=== PATIENT | male | born 1965 | race Caucasian/White ===

== ENCOUNTER 2023-09-14 05:28 | Inpatient (IN) | payer BC ==
[~2023-09-14] VITALS: Ht 167.6 cm; Wt 72.0 kg
[~2023-09-14 05:28] MED LIST: AMLO1CAP PO; ASPI-1450 PO; ATOR40TA71 PO; BICT1TAB PO; COLC-3 PO; METF-1211 PO; METO25 PO
[2023-09-14] MEDS: SODIUM CHLORIDE 0.9% 1,000 ML IV ONE ×2 (05:55→06:16)
[2023-09-14] MEDS: DILTIAZEM HCL 5 MG/ML 5 ML VIAL IVP ONE (06:12)
[2023-09-14] MEDS: DILTIAZEM HCL 125 MG in DEXTROSE 5%-WATER 100 ML IV PRN (06:13)
[2023-09-14 06:23] LABS: BASOPHILS % (AUTO) 0.3 % (0.0-2.0); EOSINOPHILS % (AUTO) 0.3 % (1.0-6.0); HEMATOCRIT 37.8 % (41-53); HEMOGLOBIN 12.8 g/dL (13.5-17.5); LYMPHOCYTES # (AUTO) 1.8 K/uL (1.0-4.8); MEAN CORPUSCULAR HEMOGLOBIN 31.1 pg (26.0-34.0); MEAN CORPUSCULAR VOLUME 91 fL (80-100); MONOCYTES # (AUTO) 0.9 K/uL (0.1-1.0); MONOCYTES % (AUTO) 7.9 % (2.0-9.0); NEUTROPHILS % (AUTO) 76.5 % (40.0-70.0); PLATELET COUNT (AUTO) 552 K/uL (150-450); RED BLOOD CELL COUNT(AUTO) 4.13 MIL/uL (4.50-5.90); RED CELL DISTRIBUTION WIDTH 12.8 % (11.5-14.5); WHITE BLOOD COUNT (AUTO) 11.7 K/uL (4.5-11.0)
[2023-09-14 06:24] LABS: CREATININE 1.26 mg/dL (0.60-1.30); POTASSIUM 3.3 mmol/L (3.5-5.1)
[2023-09-14 06:29] LABS: ALCOHOL, BLOOD (SERUM) < 3 mg/dL (0-10)
[2023-09-14 06:30] LABS: TROPONIN I-HIGH SENSITIVITY 20 ng/L (<76)
[2023-09-14 06:31] LABS: INR 1.1 (0.9-1.1); PROTHROMBIN TIME 11.6 SEC (9.4-11.6)
[2023-09-14] MEDS: VANCOMYCIN 1.25 GM/WATER(PEG) 250 ML IV ONE (06:41)
[2023-09-14 06:49] LABS: BILIRUBIN,TOTAL 0.8 mg/dL (0.1-1.0); TOTAL PROTEIN, SERUM 7.3 g/dL (6.4-8.2)
[2023-09-14 06:53] LABS: PHOSPHORUS 3.3 mg/dL (2.5-4.9)
[2023-09-14 06:55] LABS: COVID AG,FIA SOURCE NASAL SWAB
[2023-09-14 07:26] LABS: SARS-COV2 (COVID) ANTIGEN,FIA Negative (Negative)
[2023-09-14] MEDS ORDERED: POTASSIUM CHL 10 MEQ/WATER 50 ML IV PRN (09:15)
[2023-09-14] MEDS: APIXABAN 5 MG TABLET PO SCH (09:22)
[2023-09-14] MEDS: POTASSIUM CHLORIDE 20 MEQ ER TABLET PO PRN (11:14)
[2023-09-14 11:26] VITALS: BP 108/68; PULSE 87; RESP 18; TEMP 98.4
[2023-09-14 16:11] VITALS: BP 103/62; PULSE 86; RESP 18; TEMP 100.1
[2023-09-14] MEDS: ACETAMINOPHEN 325 MG TABLET PO PRN (16:12)
[2023-09-14] MEDS ORDERED: INSULIN LISPRO 100 UNITS/ML SQ PRN (17:30)
[2023-09-14] MEDS ORDERED: GLUCAGON,HUMAN RECOMBINANT 1 MG VIAL IM PRN (17:30)
[2023-09-14] MEDS ORDERED: DEXTROSE 50%-WATER 25 GM/50 ML SYRINGE IVP PRN (17:45)
[2023-09-14] MEDS: BICTEGRAV/EMTRICIT/TENOFOV ALA 50-200-25 MG TABLET PO ONE (18:32)
[2023-09-14 19:42] VITALS: BP 116/70; PULSE 88; RESP 19; TEMP 98.4
[2023-09-14] MEDS: DOCUSATE SODIUM 100 MG CAPSULE PO SCH (20:40)
[2023-09-14 20:41] LABS: GLUCOMETER DEV NAME(LOC) 5N.1D; GLUCOSE,POINT OF CARE 172 MG/DL (70-110)
[2023-09-14 20:41] LABS: GLUCOMETER DEV NAME(LOC) 5N.1D; GLUCOSE,POINT OF CARE 169 MG/DL (70-110)
[2023-09-14] MEDS: INSULIN LISPRO 100 UNITS/ML SQ PRN (20:48)
[2023-09-14 23:03] LABS: APPEARANCE,URINE CLEAR (CLEAR); BILIRUBIN,URINE NEGATIVE (NEGATIVE); COLOR,URINE LIGHT YELLOW (YELLOW); GLUCOSE, URINE (UA) NEGATIVE (NEGATIVE); KETONES,URINE NEGATIVE (NEGATIVE); LEUKOCYTE ESTERASE ,URINE NEGATIVE (NEGATIVE); NITRATE,URINE NEGATIVE (NEGATIVE); OCCULT BLOOD,URINE NEGATIVE (NEGATIVE); PH,URINE 5.5 (5.0-8.0); PROTEIN,URINE NEGATIVE (NEGATIVE); SPECIFIC GRAVITIY, URINE 1.011 (1.003-1.030)
[2023-09-14 23:11] LABS: ALCOHOL, URINE DRUG SCREEN NEGATIVE (NEGATIVE); AMPHET/METH SCREEN,URINE NEGATIVE (NEGATIVE); BARBITURATE SCREEN, URINE NEGATIVE (NEGATIVE); BENZODIAZEPINES SCREEN,URINE NEGATIVE (NEGATIVE); CANNABINOID SCREEN,URINE NEGATIVE (NEGATIVE); COCAINE SCREEN,URINE NEGATIVE (NEGATIVE); METHADONE SCREEN, URINE NEGATIVE (NEGATIVE); OPIATE SCREEN,URINE NEGATIVE (NEGATIVE); PHENCYCLIDINE SCREEN,URINE NEGATIVE (NEGATIVE)
[2023-09-14 23:24] LABS: PH,URINE DRUG SCREEN 5.5 (5.0-8.0)
[2023-09-14 23:26] VITALS: BP 117/69; PULSE 97; RESP 18; TEMP 100.7
[2023-09-15 01:56] LABS: GLUCOMETER DEV NAME(LOC) 5N.2C; GLUCOSE,POINT OF CARE 169 MG/DL (70-110)
[2023-09-15 03:33] VITALS: BP 110/60; PULSE 79; RESP 18; TEMP 99.1
[2023-09-15 06:16] LABS: TROPONIN I-HIGH SENSITIVITY 8 ng/L (<76)
[2023-09-15 06:21] LABS: GLUCOMETER DEV NAME(LOC) 5N.2C; GLUCOSE,POINT OF CARE 145 MG/DL (70-110)
[2023-09-15 08:00] VITALS: BP 115/68; PULSE 89; RESP 18; TEMP 99
[2023-09-15] MEDS: OxyCODONE HCL/ACETAMINOPHEN 5-325 MG TABLET PO PRN (08:26)
[2023-09-15] MEDS: FAMOTIDINE 20 MG TABLET PO SCH (08:26)
[2023-09-15 11:56] VITALS: BP 117/79; PULSE 84; RESP 18; TEMP 98.7
[2023-09-15] MEDS: METOPROLOL SUCCINATE 25 MG ER TABLET PO SCH (11:59)
[2023-09-15 12:16] LABS: GLUCOMETER DEV NAME(LOC) 5N.2C; GLUCOSE,POINT OF CARE 165 MG/DL (70-110)
[2023-09-15] MEDS: COLCHICINE 0.6 MG TABLET PO SCH (15:43)
[2023-09-15 20:00] VITALS: BP 116/68; PULSE 85; RESP 19; TEMP 98.6
[2023-09-15 20:35] LABS: GLUCOMETER DEV NAME(LOC) 5N.2C; GLUCOSE,POINT OF CARE 140 MG/DL (70-110)
[2023-09-15 23:50] VITALS: BP 125/78; PULSE 87; RESP 18; TEMP 99.9
[2023-09-16 04:00] VITALS: BP 137/80; PULSE 84; RESP 19; TEMP 98.8
[2023-09-16 06:16] LABS: BASOPHILS % (AUTO) 0.4 % (0.0-2.0); EOSINOPHILS % (AUTO) 0.8 % (1.0-6.0); HEMATOCRIT 31.5 % (41-53); HEMOGLOBIN 11.1 g/dL (13.5-17.5); LYMPHOCYTES # (AUTO) 1.2 K/uL (1.0-4.8); LYMPHOCYTES % (AUTO) 14.1 % (22.0-44.0); MEAN CORPUSCULAR HEMOGLOBIN 32.2 pg (26.0-34.0); MEAN CORPUSCULAR HGB CONC 35.2 G/dL (31.0-37.0); MEAN CORPUSCULAR VOLUME 92 fL (80-100); MONOCYTES # (AUTO) 0.7 K/uL (0.1-1.0); MONOCYTES % (AUTO) 8.7 % (2.0-9.0); NEUTROPHILS # (AUTO) 6.3 K/uL (1.8-7.7); PLATELET COUNT (AUTO) 475 K/uL (150-450); RED BLOOD CELL COUNT(AUTO) 3.44 MIL/uL (4.50-5.90); RED CELL DISTRIBUTION WIDTH 12.9 % (11.5-14.5); WHITE BLOOD COUNT (AUTO) 8.3 K/uL (4.5-11.0)
[2023-09-16 06:31] LABS: GLUCOMETER DEV NAME(LOC) 5N.1D; GLUCOSE,POINT OF CARE 163 MG/DL (70-110)
[2023-09-16 06:31] LABS: GLUCOMETER DEV NAME(LOC) 5N.1D; GLUCOSE,POINT OF CARE 220 MG/DL (70-110)
[2023-09-16 08:24] VITALS: BP 123/75; PULSE 82; RESP 19; TEMP 98.6
[2023-09-16 11:49] VITALS: BP 118/72; PULSE 80; RESP 18; TEMP 98.4
[2023-09-16 15:47] VITALS: BP 142/78; PULSE 85; RESP 19; TEMP 98.6
[2023-09-16] MEDS: IBUPROFEN 600 MG TABLET PO SCH (15:54)
[2023-09-16 20:00] VITALS: BP 109/56; PULSE 62; RESP 18; TEMP 98.6
[2023-09-17] VITALS (8 sets, daily range): BP systolic 116–150; BP diastolic 69–93; PULSE 72–95; RESP 17–19; TEMP 98–101.1
[2023-09-17] MEDS: IBUPROFEN 600 MG TABLET PO SCH (08:07)
[2023-09-17 12:25] LABS: GLUCOMETER DEV NAME(LOC) 5N.1D; GLUCOSE,POINT OF CARE 176 MG/DL (70-110)
[2023-09-17 12:30] LABS: GLUCOMETER DEV NAME(LOC) 5S.2D; GLUCOSE,POINT OF CARE 137 MG/DL (70-110)
[2023-09-18] VITALS (7 sets, daily range): BP systolic 99–126; BP diastolic 64–76; PULSE 79–99; RESP 17–19; TEMP 98.2–100.1
[2023-09-18] MEDS: KETOROLAC TROMETHAMINE 15 MG/ML VIAL IVP ONE (03:46)
[2023-09-18 06:31] LABS: GLUCOMETER DEV NAME(LOC) 5N.2C; GLUCOSE,POINT OF CARE 164 MG/DL (70-110)
[2023-09-18 06:31] LABS: GLUCOMETER DEV NAME(LOC) 5N.2C; GLUCOSE,POINT OF CARE 204 MG/DL (70-110)
[2023-09-18 06:31] LABS: GLUCOMETER DEV NAME(LOC) 5N.2C; GLUCOSE,POINT OF CARE 171 MG/DL (70-110)
[2023-09-18] MEDS: METOPROLOL SUCCINATE 50 MG ER TABLET PO SCH (07:59)
[2023-09-18 09:13] LABS: APPEARANCE,URINE CLEAR (CLEAR); BILIRUBIN,URINE NEGATIVE (NEGATIVE); COLOR,URINE YELLOW (YELLOW); GLUCOSE, URINE (UA) NEGATIVE (NEGATIVE); KETONES,URINE TRACE mg/dL (NEGATIVE); LEUKOCYTE ESTERASE ,URINE NEGATIVE (NEGATIVE); NITRATE,URINE NEGATIVE (NEGATIVE); OCCULT BLOOD,URINE NEGATIVE (NEGATIVE); PH,URINE 6.5 (5.0-8.0); PROTEIN,URINE 30-70 mg/dL (NEGATIVE); SPECIFIC GRAVITIY, URINE 1.024 (1.003-1.030); UROBILINOGEN,URINE >12.0 mg/dL (<=1.0)
[2023-09-18 10:13] LABS: ANION GAP 6 mmol/L (8-16); BASOPHILS % (AUTO) 0.5 % (0.0-2.0); CALCIUM, TOTAL 8.8 mg/dL (8.8-10.5); CARBON DIOXIDE 30 mmol/L (22-29); CHLORIDE 96 mmol/L (98-107); CREATININE 1.02 mg/dL (0.60-1.30); EOSINOPHILS % (AUTO) 0.1 % (1.0-6.0); GLOMERULAR FILTR. RATE CALC > 60 mL/min (>60); GLUCOSE,RANDOM 146 mg/dL (70-110); HEMOGLOBIN 11.5 g/dL (13.5-17.5); LYMPHOCYTES # (AUTO) 0.7 K/uL (1.0-4.8); LYMPHOCYTES % (AUTO) 6.8 % (22.0-44.0); MEAN CORPUSCULAR HEMOGLOBIN 31.3 pg (26.0-34.0); MEAN CORPUSCULAR HGB CONC 33.7 G/dL (31.0-37.0); MEAN CORPUSCULAR VOLUME 93 fL (80-100); MONOCYTES # (AUTO) 0.7 K/uL (0.1-1.0); MONOCYTES % (AUTO) 6.3 % (2.0-9.0); NEUTROPHILS # (AUTO) 9.3 K/uL (1.8-7.7); PLATELET COUNT (AUTO) 623 K/uL (150-450); POTASSIUM 4.1 mmol/L (3.5-5.1); RED BLOOD CELL COUNT(AUTO) 3.66 MIL/uL (4.50-5.90); RED CELL DISTRIBUTION WIDTH 12.9 % (11.5-14.5); SODIUM SERUM 132 mmol/L (136-145); UREA NITROGEN, BLOOD 13 mg/dL (7-18); WHITE BLOOD COUNT (AUTO) 10.7 K/uL (4.5-11.0)
[2023-09-18 10:18] LABS: NEUTROPHILS % (AUTO) 86.3 % (40.0-70.0)
[2023-09-18 10:36] LABS: COVID AG,FIA SOURCE NASAL SWAB
[2023-09-18] MEDS: PredniSONE 10 MG TABLET PO SCH (10:57)
[2023-09-18 11:07] LABS: SARS-COV2 (COVID) ANTIGEN,FIA Negative (Negative)
[2023-09-18] MEDS: FAMOTIDINE 20 MG TABLET PO SCH (20:51)
[2023-09-19] VITALS (7 sets, daily range): BP systolic 105–136; BP diastolic 57–77; PULSE 71–94; RESP 18; TEMP 97.9–99.1
[2023-09-19] MEDS: BENZONATATE 100 MG CAPSULE PO PRN (06:21)
[2023-09-19 06:25] LABS: GLUCOMETER DEV NAME(LOC) 5S.2D; GLUCOSE,POINT OF CARE 131 MG/DL (70-110)
[2023-09-19 06:25] LABS: GLUCOMETER DEV NAME(LOC) 5N.1D; GLUCOSE,POINT OF CARE 179 MG/DL (70-110)
[2023-09-19 06:25] LABS: GLUCOMETER DEV NAME(LOC) 5N.1D; GLUCOSE,POINT OF CARE 193 MG/DL (70-110)
[2023-09-19 06:25] LABS: GLUCOMETER DEV NAME(LOC) 5N.1D; GLUCOSE,POINT OF CARE 206 MG/DL (70-110)
[2023-09-19 12:23] LABS: ANION GAP 7 mmol/L (8-16); CALCIUM, TOTAL 8.3 mg/dL (8.8-10.5); CARBON DIOXIDE 28 mmol/L (22-29); CHLORIDE 98 mmol/L (98-107); CREATININE 1.04 mg/dL (0.60-1.30); GLOMERULAR FILTR. RATE CALC > 60 mL/min (>60); GLUCOSE,RANDOM 184 mg/dL (70-110); SODIUM SERUM 133 mmol/L (136-145); UREA NITROGEN, BLOOD 17 mg/dL (7-18)
[2023-09-19 12:25] LABS: BASOPHILS % (AUTO) 0.2 % (0.0-2.0); EOSINOPHILS % (AUTO) 0 % (1.0-6.0); HEMATOCRIT 31.5 % (41-53); HEMOGLOBIN 10.8 g/dL (13.5-17.5); LYMPHOCYTES # (AUTO) 0.6 K/uL (1.0-4.8); LYMPHOCYTES % (AUTO) 5.1 % (22.0-44.0); MEAN CORPUSCULAR HEMOGLOBIN 31.3 pg (26.0-34.0); MEAN CORPUSCULAR HGB CONC 34.1 G/dL (31.0-37.0); MEAN CORPUSCULAR VOLUME 92 fL (80-100); MONOCYTES # (AUTO) 0.5 K/uL (0.1-1.0); MONOCYTES % (AUTO) 4.1 % (2.0-9.0); NEUTROPHILS # (AUTO) 10.2 K/uL (1.8-7.7); PLATELET COUNT (AUTO) 594 K/uL (150-450); RED BLOOD CELL COUNT(AUTO) 3.44 MIL/uL (4.50-5.90); WHITE BLOOD COUNT (AUTO) 11.3 K/uL (4.5-11.0)
[2023-09-19 12:28] LABS: NEUTROPHILS % (AUTO) 90.6 % (40.0-70.0)
[2023-09-19] MEDS ORDERED: SODIUM CHLORIDE 0.9% 500 ML IV ONE (16:07)
[2023-09-19] MEDS: VANCOMYCIN 1.75GM/WATER(PEG) 350 ML IV ONE (16:13)
[2023-09-19] MEDS: MORPHINE SULFATE 2 MG/ML SYRINGE IVP PRN (16:13)
[2023-09-19] MEDS: ACYCLOVIR 800 MG TABLET PO SCH (17:44)
[2023-09-19] MEDS: ACYCLOVIR 5% 15 GM OINTMENT TP SCH (17:44)
[2023-09-19 20:10] LABS: GLUCOMETER DEV NAME(LOC) 5N.1D; GLUCOSE,POINT OF CARE 189 MG/DL (70-110)
[2023-09-19 20:10] LABS: GLUCOMETER DEV NAME(LOC) 5N.1D; GLUCOSE,POINT OF CARE 204 MG/DL (70-110)
[2023-09-20 03:33] VITALS: BP 127/69; PULSE 78; RESP 18; TEMP 99.1
[2023-09-20 07:07] LABS: ANION GAP 10 mmol/L (8-16); CALCIUM, TOTAL 8.3 mg/dL (8.8-10.5); CARBON DIOXIDE 27 mmol/L (22-29); CHLORIDE 100 mmol/L (98-107); CREATININE 0.85 mg/dL (0.60-1.30); GLOMERULAR FILTR. RATE CALC > 60 mL/min (>60); GLUCOSE,RANDOM 127 mg/dL (70-110); POTASSIUM 3.3 mmol/L (3.5-5.1); SODIUM SERUM 137 mmol/L (136-145); UREA NITROGEN, BLOOD 15 mg/dL (7-18)
[2023-09-20 07:34] VITALS: BP 146/81; PULSE 84; RESP 18; TEMP 98.4
[2023-09-20] MEDS ORDERED: VANCOMYCIN 1GM/WATER(PEG/NADA) 200 ML IV SCH (08:00)
[2023-09-20] MEDS: VANCOMYCIN 1.25 GM/WATER(PEG) 250 ML IV SCH (10:50)
[2023-09-20 11:43] VITALS: BP 109/56; PULSE 65; RESP 18; TEMP 98.9
[2023-09-20 12:11] LABS: GLUCOMETER DEV NAME(LOC) 5N.2C; GLUCOSE,POINT OF CARE 211 MG/DL (70-110)
[2023-09-20 12:11] LABS: GLUCOMETER DEV NAME(LOC) 5N.2C; GLUCOSE,POINT OF CARE 132 MG/DL (70-110)
[2023-09-20 16:20] VITALS: BP 134/72; PULSE 68; RESP 18; TEMP 98.3
[2023-09-20 19:33] VITALS: BP 133/78; PULSE 69; RESP 18; TEMP 97.5
[2023-09-20 21:00] LABS: GLUCOMETER DEV NAME(LOC) 5N.1D; GLUCOSE,POINT OF CARE 196 MG/DL (70-110)
[2023-09-20 21:00] LABS: GLUCOMETER DEV NAME(LOC) 5N.1D; GLUCOSE,POINT OF CARE 201 MG/DL (70-110)
[2023-09-21 00:15] VITALS: BP 138/73; PULSE 75; RESP 18; TEMP 98.6
[2023-09-21] MEDS: AMIODARONE HCL 150 MG in DEXTROSE 5%-WATER 97 ML IV ONE (03:51)
[2023-09-21] MEDS: AMIODARONE HCL 360 MG in DEXTROSE 5%-WATER 242.8 ML IV ONE (03:58)
[2023-09-21 04:34] VITALS: BP 121/68; PULSE 75; RESP 18; TEMP 98.5
[2023-09-21 06:55] LABS: ANION GAP 10 mmol/L (8-16); CALCIUM, TOTAL 8.4 mg/dL (8.8-10.5); CARBON DIOXIDE 24 mmol/L (22-29); CHLORIDE 103 mmol/L (98-107); CREATININE 0.85 mg/dL (0.60-1.30); GLOMERULAR FILTR. RATE CALC > 60 mL/min (>60); GLUCOSE,RANDOM 149 mg/dL (70-110); POTASSIUM 3.8 mmol/L (3.5-5.1); SODIUM SERUM 137 mmol/L (136-145); UREA NITROGEN, BLOOD 13 mg/dL (7-18)
[2023-09-21 07:15] LABS: VANCOMYCIN,RANDOM 17.2 mcg/mL (25.0-50.0)
[2023-09-21 07:33] VITALS: BP 119/69; PULSE 70; RESP 18; TEMP 98.6
[2023-09-21] MEDS: METOPROLOL SUCCINATE 50 MG ER TABLET PO SCH (08:24)
[2023-09-21] MEDS ORDERED: AMIODARONE HCL 540 MG in DEXTROSE 5%-WATER 239.2 ML IV ONE (09:30)
[2023-09-21 11:20] LABS: GLUCOMETER DEV NAME(LOC) 5N.1D; GLUCOSE,POINT OF CARE 153 MG/DL (70-110)
[2023-09-21 11:20] LABS: GLUCOMETER DEV NAME(LOC) 5N.1D; GLUCOSE,POINT OF CARE 200 MG/DL (70-110)
[2023-09-21 11:29] VITALS: BP 117/63; PULSE 67; RESP 18; TEMP 98.5
[2023-09-21 12:40] LABS: BASOPHILS % (AUTO) 0.5 % (0.0-2.0); EOSINOPHILS % (AUTO) 0.3 % (1.0-6.0); HEMATOCRIT 32.1 % (41-53); HEMOGLOBIN 10.5 g/dL (13.5-17.5); LYMPHOCYTES # (AUTO) 1.1 K/uL (1.0-4.8); LYMPHOCYTES % (AUTO) 13.5 % (22.0-44.0); MEAN CORPUSCULAR HEMOGLOBIN 30.7 pg (26.0-34.0); MEAN CORPUSCULAR HGB CONC 32.8 G/dL (31.0-37.0); MEAN CORPUSCULAR VOLUME 93 fL (80-100); MONOCYTES # (AUTO) 0.8 K/uL (0.1-1.0); MONOCYTES % (AUTO) 9.4 % (2.0-9.0); NEUTROPHILS # (AUTO) 6.3 K/uL (1.8-7.7); NEUTROPHILS % (AUTO) 76.3 % (40.0-70.0); PLATELET COUNT (AUTO) 655 K/uL (150-450); RED BLOOD CELL COUNT(AUTO) 3.43 MIL/uL (4.50-5.90); RED CELL DISTRIBUTION WIDTH 13.3 % (11.5-14.5); WHITE BLOOD COUNT (AUTO) 8.3 K/uL (4.5-11.0)
[2023-09-21 15:11] LABS: GLUCOMETER DEV NAME(LOC) 5N.2C; GLUCOSE,POINT OF CARE 169 MG/DL (70-110)
[2023-09-21 16:28] VITALS: BP 111/72; PULSE 82; RESP 19; TEMP 97.9
[2023-09-21] MEDS: NAFCILLIN SODIUM 2 GM in DEXTROSE 5%-WATER 100 ML IV SCH (16:49)
[2023-09-21 20:37] VITALS: BP 143/75; PULSE 64; RESP 18; TEMP 98.3
[2023-09-21] MEDS: ATORVASTATIN CALCIUM 40 MG TABLET PO SCH (20:46)
[2023-09-21 22:46] LABS: GLUCOMETER DEV NAME(LOC) 5S.2D; GLUCOSE,POINT OF CARE 242 MG/DL (70-110)
[2023-09-21 22:46] LABS: GLUCOMETER DEV NAME(LOC) 5N.2C; GLUCOSE,POINT OF CARE 260 MG/DL (70-110)
[2023-09-22] VITALS (7 sets, daily range): BP systolic 111–140; BP diastolic 46–79; PULSE 54–71; RESP 16–19; TEMP 98–98.9
[2023-09-22] MEDS ORDERED: AMIODARONE HCL 750 MG in DEXTROSE 5%-WATER 485 ML IV SCH (03:30)
[2023-09-22 05:11] LABS: GLUCOMETER DEV NAME(LOC) 5S.2D; GLUCOSE,POINT OF CARE 131 MG/DL (70-110)
[2023-09-22 06:14] LABS: ALANINE AMINOTRANSFERASE 87 U/L (12-78); ALBUMIN 1.5 g/dL (3.4-5.0); ALKALINE PHOSPHATASE 54 U/L (46-116); ANION GAP 8 mmol/L (8-16); ASPARTATE AMINOTRANSFERASE 34 U/L (15-37); BILIRUBIN,TOTAL 0.7 mg/dL (0.1-1.0); C-REACTIVE PROTEIN QUANT 5.12 mg/dL (0.00-0.30); CALCIUM, TOTAL 8.2 mg/dL (8.8-10.5); CARBON DIOXIDE 26 mmol/L (22-29); CHLORIDE 103 mmol/L (98-107); GLOMERULAR FILTR. RATE CALC > 60 mL/min (>60); GLUCOSE,RANDOM 131 mg/dL (70-110); POTASSIUM 3.4 mmol/L (3.5-5.1); SODIUM SERUM 137 mmol/L (136-145); TOTAL PROTEIN, SERUM 6.3 g/dL (6.4-8.2); UREA NITROGEN, BLOOD 15 mg/dL (7-18)
[2023-09-22] MEDS: BICTEGRAV/EMTRICIT/TENOFOV ALA 50-200-25 MG TABLET PO SCH (08:43)
[2023-09-22] MEDS: ASPIRIN 81 MG CHEWABLE TABLET PO SCH (08:44)
[2023-09-22] MEDS: ACYCLOVIR 200 MG CAPSULE PO SCH (15:58)
[2023-09-22 20:16] LABS: GLUCOMETER DEV NAME(LOC) 5S.2D; GLUCOSE,POINT OF CARE 174 MG/DL (70-110)
[2023-09-22 20:16] LABS: GLUCOMETER DEV NAME(LOC) 5N.2C; GLUCOSE,POINT OF CARE 152 MG/DL (70-110)
[2023-09-23 03:36] VITALS: BP 128/64; PULSE 66; RESP 18; TEMP 98.5
[2023-09-23 06:28] LABS: ANION GAP 7 mmol/L (8-16); CALCIUM, TOTAL 8.1 mg/dL (8.8-10.5); CARBON DIOXIDE 28 mmol/L (22-29); CHLORIDE 104 mmol/L (98-107); CREATININE 0.93 mg/dL (0.60-1.30); GLOMERULAR FILTR. RATE CALC > 60 mL/min (>60); GLUCOSE,RANDOM 133 mg/dL (70-110); POTASSIUM 3.3 mmol/L (3.5-5.1); SODIUM SERUM 139 mmol/L (136-145); UREA NITROGEN, BLOOD 11 mg/dL (7-18)
[2023-09-23 06:55] LABS: GLUCOMETER DEV NAME(LOC) 5S.2D; GLUCOSE,POINT OF CARE 139 MG/DL (70-110)
[2023-09-23 06:55] LABS: GLUCOMETER DEV NAME(LOC) 5S.2D; GLUCOSE,POINT OF CARE 142 MG/DL (70-110)
[2023-09-23 08:02] VITALS: BP 134/83; PULSE 73; RESP 18; TEMP 98.3
[2023-09-23 11:41] LABS: GLUCOMETER DEV NAME(LOC) 5N.2C; GLUCOSE,POINT OF CARE 189 MG/DL (70-110)
[2023-09-23 11:49] VITALS: BP 114/61; PULSE 58; RESP 18; TEMP 97.8
[2023-09-23] MEDS: LORazepam 2 MG/ML VIAL IVP ONE (13:44)
[2023-09-23] MEDS ORDERED: GADOTERATE MEGLUMINE 10 MMOL/20 ML VIAL IVP ONE (14:59)
[2023-09-23 15:07] VITALS: BP 122/71; PULSE 62; RESP 18; TEMP 98
[2023-09-23 20:01] LABS: GLUCOMETER DEV NAME(LOC) 5S.2D; GLUCOSE,POINT OF CARE 156 MG/DL (70-110)
[2023-09-23 21:33] VITALS: BP 119/64; PULSE 76; RESP 18; TEMP 98.2
[2023-09-24] VITALS (8 sets, daily range): BP systolic 118–149; BP diastolic 63–81; PULSE 58–90; RESP 18–20; TEMP 98.3–98.9
[2023-09-24 01:56] LABS: GLUCOMETER DEV NAME(LOC) 5S.2D; GLUCOSE,POINT OF CARE 166 MG/DL (70-110)
[2023-09-24 06:31] LABS: BASOPHILS % (AUTO) 0.3 % (0.0-2.0); EOSINOPHILS % (AUTO) 0.7 % (1.0-6.0); HEMATOCRIT 32.2 % (41-53); LYMPHOCYTES # (AUTO) 1.4 K/uL (1.0-4.8); LYMPHOCYTES % (AUTO) 21.3 % (22.0-44.0); MEAN CORPUSCULAR HEMOGLOBIN 31.2 pg (26.0-34.0); MEAN CORPUSCULAR HGB CONC 34.3 G/dL (31.0-37.0); MEAN CORPUSCULAR VOLUME 91 fL (80-100); MONOCYTES # (AUTO) 0.6 K/uL (0.1-1.0); MONOCYTES % (AUTO) 8.7 % (2.0-9.0); NEUTROPHILS # (AUTO) 4.6 K/uL (1.8-7.7); PLATELET COUNT (AUTO) 602 K/uL (150-450); RED BLOOD CELL COUNT(AUTO) 3.53 MIL/uL (4.50-5.90); WHITE BLOOD COUNT (AUTO) 6.7 K/uL (4.5-11.0)
[2023-09-24 07:00] LABS: ALANINE AMINOTRANSFERASE 51 U/L (12-78); ALBUMIN 1.6 g/dL (3.4-5.0); ALKALINE PHOSPHATASE 54 U/L (46-116); ANION GAP 6 mmol/L (8-16); ASPARTATE AMINOTRANSFERASE 24 U/L (15-37); BILIRUBIN,TOTAL 0.6 mg/dL (0.1-1.0); C-REACTIVE PROTEIN QUANT 3.35 mg/dL (0.00-0.30); CARBON DIOXIDE 29 mmol/L (22-29); CHLORIDE 102 mmol/L (98-107); GLOMERULAR FILTR. RATE CALC > 60 mL/min (>60); GLUCOSE,RANDOM 138 mg/dL (70-110); POTASSIUM 3.3 mmol/L (3.5-5.1); SODIUM SERUM 137 mmol/L (136-145); TOTAL PROTEIN, SERUM 6.3 g/dL (6.4-8.2); UREA NITROGEN, BLOOD 12 mg/dL (7-18)
[2023-09-24] MEDS ORDERED: BENZOCAINE 20% 50 MCG/SPRAY 57 GM ONE (12:12)
[2023-09-24] MEDS ORDERED: MIDAZOLAM HCL 2 MG/2 ML VIAL ONE (12:29)
[2023-09-24] MEDS ORDERED: FentaNYL CITRATE PF 100 MCG/2 ML VIAL ONE (12:29)
[2023-09-24] MEDS: MIDAZOLAM HCL 2 MG/2 ML VIAL IVP ONE (12:56)
[2023-09-24] MEDS: FentaNYL CITRATE PF 100 MCG/2 ML VIAL IVP ONE (12:57)
[2023-09-24 16:05] LABS: GLUCOMETER DEV NAME(LOC) 5N.2C; GLUCOSE,POINT OF CARE 124 MG/DL (70-110)
[2023-09-24 16:05] LABS: GLUCOMETER DEV NAME(LOC) 5N.2C; GLUCOSE,POINT OF CARE 129 MG/DL (70-110)
[2023-09-24 20:01] LABS: GLUCOMETER DEV NAME(LOC) 5S.2D; GLUCOSE,POINT OF CARE 185 MG/DL (70-110)
[2023-09-25] VITALS (7 sets, daily range): BP systolic 107–130; BP diastolic 53–78; PULSE 62–74; RESP 18–19; TEMP 98.1–98.8
[2023-09-25 05:41] LABS: GLUCOMETER DEV NAME(LOC) 5N.2C; GLUCOSE,POINT OF CARE 140 MG/DL (70-110)
[2023-09-25 08:46] LABS: ANION GAP 5 mmol/L (8-16); CALCIUM, TOTAL 8.4 mg/dL (8.8-10.5); CARBON DIOXIDE 31 mmol/L (22-29); CHLORIDE 100 mmol/L (98-107); CREATININE 0.95 mg/dL (0.60-1.30); GLOMERULAR FILTR. RATE CALC > 60 mL/min (>60); GLUCOSE,RANDOM 127 mg/dL (70-110); POTASSIUM 3.4 mmol/L (3.5-5.1); SODIUM SERUM 136 mmol/L (136-145); UREA NITROGEN, BLOOD 12 mg/dL (7-18)
[2023-09-25 20:26] LABS: GLUCOMETER DEV NAME(LOC) 5S.2D; GLUCOSE,POINT OF CARE 197 MG/DL (70-110)
[2023-09-25 20:26] LABS: GLUCOMETER DEV NAME(LOC) 5S.2D; GLUCOSE,POINT OF CARE 119 MG/DL (70-110)
[2023-09-25 20:26] LABS: GLUCOMETER DEV NAME(LOC) 5S.2D; GLUCOSE,POINT OF CARE 115 MG/DL (70-110)
[2023-09-25 21:45] LABS: GLUCOMETER DEV NAME(LOC) 5N.2C; GLUCOSE,POINT OF CARE 176 MG/DL (70-110)
[2023-09-26 04:40] VITALS: BP 123/69; PULSE 65; RESP 18; TEMP 98
[2023-09-26 07:31] LABS: GLUCOMETER DEV NAME(LOC) 5N.2C; GLUCOSE,POINT OF CARE 125 MG/DL (70-110)
[2023-09-26 08:55] VITALS: BP 124/65; PULSE 66; RESP 18; TEMP 98.8
[2023-09-26] MEDS ORDERED: SODIUM CHLORIDE 0.9% 1,000 ML ONE (12:22)
[2023-09-26 13:10] VITALS: BP 128/58; PULSE 58; RESP 18; TEMP 98.8
[2023-09-26 17:41] VITALS: BP 137/70; PULSE 61; RESP 18; TEMP 98.3
[2023-09-26 19:56] LABS: GLUCOMETER DEV NAME(LOC) 5N.2C; GLUCOSE,POINT OF CARE 178 MG/DL (70-110)
[2023-09-26 19:56] LABS: GLUCOMETER DEV NAME(LOC) 5N.2C; GLUCOSE,POINT OF CARE 142 MG/DL (70-110)
[2023-09-26 19:58] VITALS: BP 121/72; PULSE 58; RESP 19; TEMP 98.1
[2023-09-26 21:46] LABS: GLUCOMETER DEV NAME(LOC) 5S.2D; GLUCOSE,POINT OF CARE 126 MG/DL (70-110)
[2023-09-27 00:40] VITALS: BP 137/71; PULSE 70; RESP 18; TEMP 98.3
[2023-09-27 04:11] VITALS: BP 121/67; PULSE 63; RESP 19; TEMP 98.9
[2023-09-27 06:42] LABS: GLUCOMETER DEV NAME(LOC) 5S.2D; GLUCOSE,POINT OF CARE 128 MG/DL (70-110)
[2023-09-27 07:53] VITALS: BP 137/84; PULSE 62; RESP 18; TEMP 98.5
[2023-09-27 14:49] VITALS: BP 116/59; PULSE 55; RESP 18; TEMP 98.2
[2023-09-27 21:56] LABS: GLUCOMETER DEV NAME(LOC) 5S.2D; GLUCOSE,POINT OF CARE 157 MG/DL (70-110)
[2023-09-27 21:56] LABS: GLUCOMETER DEV NAME(LOC) 5S.2D; GLUCOSE,POINT OF CARE 129 MG/DL (70-110)
== END 2023-09-27 19:20 | DRG 314 ==
LOC: EMS 05:30 → EDH 09:24 → 5N 10:36
PROVIDERS: ADMIT Internal Medicine; ATTEND Internal Medicine
PROC: 05H933Z Insertion of Infusion Device into Right Brachial Vein, Percutaneous Approach (ICD-10-PCS; principal; 2023-09-25)
DX: I30.1 Infective pericarditis (principal); E43 Unspecified severe protein-calorie malnutrition; E87.1 Hypo-osmolality and hyponatremia; R78.81 Bacteremia; I48.0 Paroxysmal atrial fibrillation; I31.39 Other pericardial effusion (noninflammatory); I25.10 Atherosclerotic heart disease of native coronary artery without angina pectoris; E11.9 Type 2 diabetes mellitus without complications; I11.9 Hypertensive heart disease without heart failure; E87.6 Hypokalemia; E78.5 Hyperlipidemia, unspecified; B00.9 Herpesviral infection, unspecified; Z20.822 Contact with and (suspected) exposure to COVID-19; M54.6 Pain in thoracic spine; S30.820A Blister (nonthermal) of lower back and pelvis, initial encounter; B95.61 Methicillin susceptible Staphylococcus aureus infection as the cause of diseases classified elsewhere; D75.839 Thrombocytosis, unspecified; M48.02 Spinal stenosis, cervical region; X58.XXXA Exposure to other specified factors, initial encounter; Z79.01 Long term (current) use of anticoagulants; I25.2 Old myocardial infarction; Z79.899 Other long term (current) drug therapy; Z83.3 Family history of diabetes mellitus; Z91.148 Patient's other noncompliance with medication regimen for other reason; Z68.25 Body mass index [BMI] 25.0-25.9, adult; Y93.89 Activity, other specified; Y92.89 Other specified places as the place of occurrence of the external cause; Y99.8 Other external cause status
CPT/HCPCS: 36245; 36569; 71045; 72141; 72157; 76937; 80048; 80053; 80202; 80307; 81003; 82550; 82962; 83036; 83735; 83880; 84100; 84132; 84484; 85025; 85610; 85730; 86140; 87040; 87077; 87081; 87205; 87635; 93005; 93308; 93312; 99291; G0480; J0282; J1885; J2060; J2250; J2270; J3010; J3490; J7030; J7040; J7060; 36415-L1; 36415-TC; J7512; Z7610